=== PATIENT | female | born 1990 | race African-American/Black ===

== ENCOUNTER 2018-12-07 07:58 | Outpatient (CLI) | payer OTHER ==
--- NOTE | 2018-12-07 09:01 | ULT ---
OB ULTRASOUND: HISTORY: Evaluate size and dates. TECHNIQUE: Multiple longitudinal and transverse images of an intrauterine are obtained using a MultiHe rtz curvilinear transducer. Real-time, color-flow and spectral wave-form Doppler analysis is used to evaluate the fetus. FINDINGS: The fetus is visualized, being in a cephalic presentation. The placenta is posterior. Cervical length measures 5.5 cm. Cardiac activity is seen, measuring 161 beats per minute. Amniotic fluid index measures 17.1 cm. Biometrics: Biparietal diameter equals 49 mm (20 weeks 5 days) Head circumference equals 176 mm (20 weeks 1 day) Abdominal circumference equals 158 mm (21 weeks 0 days) Femur length equals 34 mm (20 weeks 6 days) Composite equals 20 weeks 5 days, with the estimated date of delivery of 04/21/2019. Estimated weight is 377 g, plus or minus 55 g. Estimated weight percentile is 40%. IMPRESSION: Viable intrauterine with an estimated gestational age of 20 weeks 5 days and an estimated f etal weight of 377 g. Cervical length measures 5.5 cm. Transcribed Date/Time: 12/07/2018 9:09 AM
== END 2018-12-07 07:59 | disposition home or self-care (01) ==
LOC: BICULT 07:58
PROVIDERS: ATTEND Family Medicine
DX: Z34.82 Encounter for supervision of other normal pregnancy, second trimester (principal); Z3A.20 20 weeks gestation of pregnancy
CPT/HCPCS: 76805

== ENCOUNTER 2019-03-13 17:36 | Inpatient (IN) | payer OTHER ==
[2019-03-13 18:25] VITALS: BP 130/84; TEMP 98; BMI 31.0
[2019-03-13] MEDS ORDERED: Lidocaine 1% (PF) 30 ML VIAL SC PRN (18:41)
[2019-03-13] MEDS ORDERED: hydrALAZINE 20 MG/ML VIAL SLOW IVP PRN (18:41)
[2019-03-13] MEDS ORDERED: NS / Oxytocin 40 units/1000ml 1,000 ML IV PRN (18:41)
[2019-03-13] MEDS ORDERED: Promethazine HCl 25 MG/ML VIAL IM PRN (18:41)
[2019-03-13] MEDS ORDERED: Ondansetron PF 4 MG/2 ML Vial IVP PRN (18:41)
--- NOTE | 2019-03-13 19:09 | HP ---
TIME OF EVALUATION: 1830 hours. LOCATION: Labor and Delivery in triage H and H. This is a patient Dr. Lua. The patient has a hand written H and P as well in the chart. HISTORY OF PRESENT ILLNESS: This is a 28-year-old female, two, para 1 with a prior vaginal delivery in the past, who is currently at 34 weeks and 3 days with an estimated due date of April 21. She is here for irregular contractions but denies vaginal bleeding or leakage of fluid. She denies any other complications except diet-controlled diabetes and she has been doing well with that. She also states some decreased movement. I was called because on first arrival, the nurse, Sheron, could not find the baby's heartbeat. Dr. Dallas and myself evaluated the patient at bedside with a bedside ultrasound. PAST MEDICAL HISTORY: Gestational diabetes, for which she takes no medication. PAST OB: x 1 at term SOCIAL: NONE ALLERGIES: NONE. PAST SURGICAL HISTORY: NONE MEDICATIONS: vitamins and antacids. PHYSICAL EXAMINATION: VITAL SIGNS: Her blood pressure is 130/84, O2 saturation is 98%, pulse is 84. GENERAL: Clinically, she is in no acute distress. PELVIC: Uterus is soft and nontender. I performed a cervical vaginal exam and the ultrasound was powering up. Cervical exam was 2 cm dilated, 60% effacement, -1 station. Bag of water is intact and baby is in cephalic presentation. There is no evidence of vaginal bleeding or of leakage of fluid. There are no external lesions. Ultrasound to confirm the baby's cardiac motion failed to document cardiac activity. This was confirmed by me and Dr. Dallas. We did confirm that there was no heart activity after observing the baby's cardiac silhouette for 30 seconds to 1 minute. ASSESSMENT: This is a 28-year-old G2, P1, at 34 weeks with gestational diabetes with an intrauterine demise of unclear etiology. PLAN: 1. I have discussed these findings with the patient in the room and information given. 2. I do not have any etiology for this yet. 3. I have recommended admission to Labor and Delivery due to her contractions and early labor. 4. Cytotec is recommended. 5. I did recommend autopsy and pathology evaluation per protocol. 6. We will get hemoglobin A1c as well. 7. I did send Dr. Lua a priority message and we are awaiting to hear back. Dr Lua has acknowledged. Job ID: [id number] [facility]
[2019-03-13 19:17] LABS: Hemoglobin 12.6 g/dL (12.0-16.0); Mean Corpuscular HGB CONC 34.1 g/dL (32.0-36.0); Mean Corpuscular Hemoglobin 31.7 pg (27.0-31.0); Mean Corpuscular Volume 93.2 fL (78.0-98.0); Mean Platelet Volume 8.8 fL (7.4-10.4); Platelet Count 173 thou/uL (130-400); RBC Distribution Width 13.1 % (11.5-14.5); Red Blood Cell (RBC) Count 3.97 mill/uL (4.20-5.40)
[2019-03-13 19:23] LABS: Hemoglobin A1c 5.3 % (4.0-6.0)
[2019-03-13 19:25] LABS: PTT 27.6 SEC (22.9-36.1)
[2019-03-13 19:31] LABS: INR-International Normal Ratio 0.9; Prothrombin Time 11.9 SEC (12.0-14.7)
[2019-03-13 19:55] LABS: HBSAg Index 0.15 S/CO (0-0.99); HIV (1/2) Antibody/Antigen Non-Reactive (NonReactive); HIV 1/2 INDEX 0.08 S/CO (<1.00); Hep B Surf Ag Non-Reactive S/CO (NonReactive); Syphilis Antibody Nonreactive (Nonreactive); Syphilis Antibody Index 0.03 S/CO (<1.00 Non-Reactive)
[2019-03-13] MEDS: Lactated Ringer's 1,000 ML IV SCH (20:00)
[2019-03-13] MEDS ORDERED: Butorphanol Tartrate 1 MG/ML VIAL ONE (20:55)
[2019-03-13] MEDS: Butorphanol Tartrate 1 MG/ML VIAL SLOW IVP PRN ×3 (20:58→23:11)
[2019-03-14] LABS: Amphetamine Not Detected (NotDetected); Barbiturates Screen Not Detected (NotDetected); Benzodiazepine Screen Not Detected (NotDetected); Cocaine Metabolite Screen Not Detected (NotDetected); Medtox Control Line Valid? VALID (VALID); Medtox Reader # READER 4; Methadone Not Detected (NotDetected); Methamphetamine Not Detected (NotDetected); Opiate Screen Not Detected (NotDetected); Oxycodone Screen Not Detected (NotDetected); Phencyclidine (PCP) Not Detected (NotDetected); THC/Cannabinoid Screen Not Detected (NotDetected); Tricyclic Screen Not Detected (NotDetected)
[2019-03-14] MEDS ORDERED: NS w/ Oxytocin 10 units 500 ML IVPB SCH (00:15)
[2019-03-14] MEDS: Butorphanol Tartrate 1 MG/ML VIAL SLOW IVP PRN ×3 (00:16→02:26)
[2019-03-14] MEDS ORDERED: Famotidine 20 MG TAB PO SCH (02:45)
[2019-03-14] MEDS: Lactated Ringer's 1,000 ML IV SCH (02:48)
[2019-03-14] MEDS ORDERED: Fentanyl 4 mcg/Bup 0.1% Cadd 0 ML ONE (03:25)
--- NOTE | 2019-03-14 04:18 | OP ---
VAGINAL PLACENTAL DELIVERY DATE OF PROCEDURE: 03/14/2019 TIME OF INTERVENTION: Roughly 03:46. PROCEDURE PERFORMED: Placenta delivery. In brief, I was asked to evaluate the patient in bed 5, who had just delivered an intrauterine demise. This is a patient of Dr. Lua. I arrived about 1 minute later. The patient had precipitously delivered the demise with Diana, the patient's nurse, at bedside, who assisted. The placenta was still in situ. When I arrived, the cord appeared pale but was still attached to the placenta. Gentle downward traction and maternal pushing effort revealed that the placenta was in the vagina and delivered without complication. A large adherent clot to the maternal surface of the placenta was noted. I suspect that the cause of the demise may have been an abruption. The placenta will go to pathology. There were no lacerations noted. My estimated blood loss was about 100 mL. The patient was holding the baby, who was wrapped in towels and a blanket during the procedure. She tolerated the procedure well. Although, she was still somewhat sedated from her intravenous Stadol. No complications were noted with my placental delivery. Dr. Lua is en route. Job ID: [id number] MTDD
[2019-03-14] MEDS ORDERED: Lanolin Ointment 7 GM TUBE TOP PRN (04:30)
[2019-03-14] MEDS ORDERED: Milk Of Magnesia 30 ML UDCUP PO PRN (04:30)
[2019-03-14] MEDS ORDERED: Promethazine HCl 25 MG/ML VIAL IM PRN (04:30)
[2019-03-14] MEDS ORDERED: NS / Oxytocin 40 units/1000ml 1,000 ML IV SCH (04:30)
[2019-03-14] MEDS ORDERED: Zolpidem Tartrate 5 MG TAB PO PRN (04:30)
[2019-03-14] MEDS ORDERED: diphenhydrAMINE 25 MG CAP PO PRN (04:30)
[2019-03-14] MEDS ORDERED: Benzocaine-Menthol 82.5 ML CAN TOP PRN (04:30)
[2019-03-14] MEDS ORDERED: Ondansetron PF 4 MG/2 ML Vial IVP PRN (04:30)
[2019-03-14] MEDS ORDERED: Preparation H Ointment 28 GM TUBE PR PRN (04:31)
[2019-03-14] MEDS ORDERED: Acetaminophen 325 MG TAB PO PRN (04:32)
[2019-03-14] MEDS ORDERED: HYDROcodone/Acetaminophen 5/325 mg Tablet PO PRN ×2 (04:33)
[2019-03-14] MEDS ORDERED: Bisacodyl 10 MG SUPP PR PRN (04:45)
--- NOTE | 2019-03-14 04:48 | PDOC.EVN ---
Event Note - Event Note Event Note: Please note that my prior placental delivery note, labeled OPERATIVE note, was NOT an operative procedure: it was a simple vaginal delivery of the placenta.
[2019-03-14] MEDS ORDERED: Ibuprofen 800 MG TAB PO SCH (06:00)
[2019-03-14] MEDS ORDERED: Ferrous Sulfate 325 MG TAB PO SCH (08:00)
[2019-03-14] MEDS ORDERED: Varicella virus, LIVE 0.5 ML VIAL SC SCH (09:00)
[2019-03-14] MEDS ORDERED: Docusate Calcium (SURFAK) 240 MG CAP PO SCH (09:00)
[2019-03-14] MEDS ORDERED: Adacel (T-DAP) 0.5 ML SYRINGE IM SCH (09:00)
== END 2019-03-14 10:35 | disposition home or self-care (01) | DRG 805 ==
LOC: L&D/OP 17:36 → L&D 19:54
PROVIDERS: ADMIT Family Medicine; ATTEND Family Medicine
PROC: 10E0XZZ Delivery of Products of Conception, External Approach (ICD-10-PCS; principal; 2019-03-14)
PROC: 3E0P7VZ Introduction of Hormone into Female Reproductive, Via Natural or Artificial Opening (ICD-10-PCS; 2019-03-14)
PROC: 3E033VJ Introduction of Other Hormone into Peripheral Vein, Percutaneous Approach (ICD-10-PCS; 2019-03-14)
DX: O36.4XX0 Maternal care for intrauterine death, not applicable or unspecified (principal); O45.93 Premature separation of placenta, unspecified, third trimester; Z37.1 Single stillbirth; Z3A.34 34 weeks gestation of pregnancy; O24.420 Gestational diabetes mellitus in childbirth, diet controlled
CPT/HCPCS: 36415; 51702; 80306; 83036; 85027; 85384; 85610; 85730; 86780; 86850; 86900; 86901; 87340; 87389; 99285; J0595; J2590